=== PATIENT | male | born 1950 | race African-American/Black ===

== ENCOUNTER 2017-12-11 08:02 | Outpatient (CLI) | payer OTHER ==
--- NOTE | 2017-12-11 11:22 | CT ---
CT OF THE CHEST AND ABDOMEN WITH CONTRAST: Indication: History of esophageal cancer. Comparison: CT chest, abdomen and pelvis dated 02-12-17, CT chest dated 07-01-13, CT of the abdomen and pelvis dated 08-09-16. FINDINGS: CHEST: Since the comparison study there has been an interval esophagectomy and performance of a gastric pull through. There is some layered enteric contrast and gas seen within the esophagus. No suspicious pulm onary nodule is demonstrated. The lobulated pulmonary nodule within the left lower lobe measures 1.3 cm which is stable to the comparison exams. There is some mild subsegmental volume loss within the po sterior medial left lower lobe which is new. There are small calcified granuloma seen within the righ t middle lobe. There are scattered emphysema. No pathologically enlarged lymph nodes are seen within the mediastinum, hilar or axillary regions. ABDOMEN: The gallbladder is surgically absent. The intrahepatic and extrahepatic biliary ductal dilatation is stable. Mild dilatation of the main pancreatic duct at the level of the pancreatic head and proximal pancreatic body are stable. Adrenal glands are normal appearing. The right renal cysts are stable. Ot her renal hypodensities, difficult to characterize due to their size, are stable. No pathologically e nlarged lymph nodes are evident. The spleen is normal appearing. Mild ectasia of the infrarenal abdominal aorta measuring 2.4 cm is stable on Image 82 of Series 2. Se [place] vascular calcification of the abdominal and pelvic vasculature is similar. Scattered diverticula seen involving the colon without evidence of active diverticulosis. The visualized aspects of the sm all bowel appear within normal limits. Pars defect at L5 are stable. No suspicious osteolytic or oste oblastic lesion is evident. Small focus of sclerosis involving the inferior left third rib laterally has been stable since 2012. IMPRESSION: 1. Interval esophagectomy with gastric pullthrough. 2. No CT evidence to suggest regional or metastatic disease. 3. Stable left lower lobe pulmonary nodule. This has been stable over two years and is likely benign. 4. Stable renal cysts. 5. Cholecystectomy. 6. Diverticulosis. 7. Infrarenal abdominal aorta ectasia is stable. 8. Bilateral pars defects at L5. POS: [facility]
[2017-12-11] MEDS ORDERED: Iopamidol 370 76% 100 ML VIAL ONE ×2 (12:58)
== END 2017-12-11 08:03 | disposition home or self-care (01) ==
LOC: CT 08:02
PROVIDERS: ATTEND Internal Medicine Hematology & Oncology
DX: C15.5 Malignant neoplasm of lower third of esophagus (principal); R91.8 Other nonspecific abnormal finding of lung field; N28.1 Cyst of kidney, acquired; K57.30 Diverticulosis of large intestine without perforation or abscess without bleeding; I77.811 Abdominal aortic ectasia; Z90.49 Acquired absence of other specified parts of digestive tract
CPT/HCPCS: 71260; 74160

== ENCOUNTER 2018-03-11 11:27 | Outpatient (CLI) | payer OTHER, MEDICARE ==
--- NOTE | 2018-03-11 13:30 | RAD ---
TWO VIEW CHEST: INDICATIONS: Dyspnea. COMPARISON: Chest film from 06/08/[address] from 12/11/2017. FINDINGS: The lungs show hyperexpansion. No evidence of infiltrate or vascular congestion. Nodule overlying t he left lower lung has been previously described and remains stable. Heart size is normal. Mediasti num is unremarkable. IMPRESSION: 1. Hyperexpansion suggesting chronic obstructive pulmonary disease. 2. Left pulmonary nodule, stable. 3. No acute infiltrate or lung process. POS: [facility]
== END 2018-03-11 11:28 | disposition home or self-care (01) ==
LOC: RAD 11:27
PROVIDERS: ATTEND Internal Medicine Pulmonary Disease
DX: R06.00 Dyspnea, unspecified (principal); R91.1 Solitary pulmonary nodule; R91.8 Other nonspecific abnormal finding of lung field
CPT/HCPCS: 71046

== ENCOUNTER 2018-05-31 09:09 | Emergency (ER) | payer OTHER, MEDICARE | END 2018-05-31 10:25 | disposition home or self-care (01) | LOC: SCSER 09:09 | DX: J02.9 Acute pharyngitis, unspecified (principal); I25.10 Atherosclerotic heart disease of native coronary artery without angina pectoris; E11.9 Type 2 diabetes mellitus without complications; I10 Essential (primary) hypertension | CPT/HCPCS: 87081; 87430; 99283 ==

== ENCOUNTER 2018-07-02 08:05 | Outpatient (CLI) | payer OTHER, MEDICARE ==
--- NOTE | 2018-07-02 10:31 | CT ---
CT THORAX WITH IV CONTRAST CT ABDOMEN WITH IV CONTRAST: Date: 07-02-18 History: Esophageal cancer post chemotherapy and radiation. Follow up evaluation. Comparison: 12-11-17 FINDINGS: CT THORAX: Again noted is evidence of esophagectomy and gastric pull through. There is an approximately 4 mm pulmonary nodule seen within the right upper lobe (Image 17, Series 3) . This was present on the prior study as well as the study of 06-08-17. Again noted is the noncalcifie d left lower lobe pulmonary measuring approximately 1.4 cm. This has not significantly changed in siz e or appearance from prior exam. No new pulmonary nodule or mass is seen. Calcified granuloma is agai n present in the right middle lobe. There is no evidence of lymphadenopathy. Gynecomastia is seen bilaterally. No lytic or sclerotic osseous lesions are seen. CT ABDOMEN: Again noted are bilateral renal cysts with subcentimeter, too small to characterize, hypodense lesion s again present in the left kidney. Post cholecystectomy changes are noted. The liver, spleen, and bilateral adrenal glands demonstrate a normal CT appearance. Post cholecystectomy changes are noted. The pancreatic duct is prominent, but this is a stable findin g when compared to prior study as well as study on 08-09-16. The exact etiology for dilatation of the pancreatic duct is uncertain based on this exam. There is colonic diverticulosis. Opacified small bowel has a normal appearance and is normal in calib er. Atherosclerotic plaque is seen in the abdominal aorta and involving the iliac arteries. There is ecta ashley of the right common iliac artery with concentric area of atherosclerotic plaque present. There is no evidence of lymphadenopathy, free fluid, or fluid collection seen in the abdomen. Bilateral pars defects are seen at L5 with mild grade I anterolisthesis of L5 on S1. No lytic or scle rotic osseous lesions seen. There are degenerative changes in the lower lumbar spine. IMPRESSION: 1. Stable noncalcified pulmonary nodule left lower lobe measuring 14 mm as well as stable approximate ly 4 mm pulmonary nodule in the right upper lobe. No new pulmonary nodule or mass is seen. 2. Post-surgical changes related to esophagectomy and gastric pull through. 3. Stable dilatation of the pancreatic duct. 4. Bilateral renal cysts with subcentimeter too small to characterize left renal hypodensities. 5. Post cholecystectomy changes. 6. Gynecomastia. 7. Colonic diverticulosis. 8. Stable ectasia of the right common iliac artery with atherosclerotic plaque present. There is prom inent atherosclerotic plaque in the abdominal aorta and bilateral iliac arteries. 9. Spondylolisthesis lumbosacral junction. POS: [facility]
[2018-07-02] MEDS ORDERED: Iopamidol 370 76% 100 ML VIAL ONE (12:56)
== END 2018-07-02 08:06 | disposition home or self-care (01) ==
LOC: CT 08:05
PROVIDERS: ATTEND Internal Medicine Hematology & Oncology
DX: C15.5 Malignant neoplasm of lower third of esophagus (principal); K57.30 Diverticulosis of large intestine without perforation or abscess without bleeding; N28.1 Cyst of kidney, acquired; N62 Hypertrophy of breast; K86.89 Other specified diseases of pancreas; M43.16 Spondylolisthesis, lumbar region; I70.8 Atherosclerosis of other arteries; R91.1 Solitary pulmonary nodule; Z90.49 Acquired absence of other specified parts of digestive tract
CPT/HCPCS: 71260; 74160; 82565

== ENCOUNTER 2019-01-11 09:03 | Outpatient (CLI) | payer OTHER, MEDICARE ==
--- NOTE | 2019-01-11 10:40 | ULT ---
BILATERAL RENAL SONOGRAM: Date: 01/11/19 HISTORY: Chronic kidney disease. COMPARISON: CT abdomen on 07/02/18. FINDINGS: The right kidney measures 11.5 cm x 5.1 cm. The left kidney measures 9.6 cm x 5.2 cm. There are anechoic cystic lesions seen within the superior pole and lateral aspect of mid portion of right kidney. Largest cyst mid portion right kidney measures approximately 5.1 cm with anechoic lesio n in the superior pole of right kidney measuring approximately 2.3 cm. There is an anechoic cystic st ructure at the inferior pole of the left kidney measuring 1.6 cm. These anechoic cystic structures de monstrate sonographic findings compatible with renal cysts, which correspond to the findings on the r ecent CT scan exam. No solid renal mass is seen. There is no hydronephrosis, renal calculus, or perinephric fluid collect ion seen bilaterally. The urinary bladder is decompressed, but grossly normal in appearance for decompressed appearance of the urinary bladder. IMPRESSION: 1. Bilateral renal cysts. 2. No evidence of hydronephrosis. POS: [facility]
== END 2019-01-11 09:04 | disposition home or self-care (01) ==
LOC: BICULT 09:03
PROVIDERS: ATTEND Internal Medicine Nephrology
DX: N18.3 Chronic kidney disease, stage 3 (moderate) (principal); N28.1 Cyst of kidney, acquired
CPT/HCPCS: 76770

== ENCOUNTER 2019-03-10 11:32 | Outpatient (CLI) | payer OTHER, MEDICARE ==
--- NOTE | 2019-03-10 11:51 | RAD ---
2 views of chest: 03/10/2009 COMPARISON: 03/11/2018 HISTORY: Dyspnea FINDINGS: There is a 1.5 cm pulmonary nodule in the left lower lobe, unchanged when compared to the p rior examination. Increased linear interstitial density and pulmonary hyperinflation noted, suggesting COPD in the prop er clinical setting. No pneumothorax, pleural fluid, focal consolidation, or alveolar edema. IMPRESSION: Stable appearance of the chest as detailed above.
== END 2019-03-10 11:33 | disposition home or self-care (01) ==
LOC: RAD 11:32
PROVIDERS: ATTEND Internal Medicine Pulmonary Disease
DX: R06.00 Dyspnea, unspecified (principal); R91.8 Other nonspecific abnormal finding of lung field; J98.4 Other disorders of lung
CPT/HCPCS: 71046

== ENCOUNTER 2019-07-09 12:09 | Outpatient (CLI) | payer OTHER, MEDICARE ==
--- NOTE | 2019-07-09 13:26 | ULT ---
Exam: Bilateral renal ultrasound complete: HISTORY: Chronic kidney disease COMPARISON: 01/11/2019 FINDINGS: Right kidney: 9.3 x 6.7 x 5.6 cm Left kidney: 9.5 x 5.1 x 4.6 cm No renal hydronephrosis. No evidence for abnormal perinephric process. Multiple bilateral renal cysts up to 5.3 cm on the right side. Unremarkable appearing bladder. IMPRESSION: Multiple bilateral renal cysts. No renal hydronephrosis. Stable from prior study.
== END 2019-07-09 12:10 | disposition home or self-care (01) ==
LOC: BICULT 12:09
PROVIDERS: ATTEND Internal Medicine Nephrology
DX: N18.3 Chronic kidney disease, stage 3 (moderate) (principal); N28.1 Cyst of kidney, acquired
CPT/HCPCS: 76770

== ENCOUNTER 2020-03-13 09:49 | Outpatient (CLI) | payer OTHER, MEDICARE ==
--- NOTE | 2020-03-13 11:31 | RAD ---
LUMBAR SPINE RADIOGRAPHS 4 VIEWS: DATE: 03/13/2020. PROVIDED CLINICAL HISTORY: Back pain. FINDINGS: Five [id number] lumbar-type vertebral bodies are present. There is grade I anterolisthesis of L 5 on S1 likely on the basis of L5 pars defects. Lumbar alignment appears otherwise normal. There is no evidence for abnormal translational motion with flexion and extension. Vertebral body heights ap pear preserved. Pedicles appear intact. SI joints appear symmetric. Surgical clips are seen in the right upper quadrant. Vascular calcifications are noted. Intervertebral disk space heights appear preserved with the exception of L5-S1 where there is end plate degenerative change and vacuum disk ph enomenon. IMPRESSION: Grade I spondylolisthesis of L5 on S1. POS: [facility]
== END 2020-03-13 09:50 | disposition home or self-care (01) ==
LOC: BICRAD 09:49
PROVIDERS: ATTEND Nurse Practitioner Family
DX: M54.5 Low back pain (principal); M43.17 Spondylolisthesis, lumbosacral region
CPT/HCPCS: 72110

== ENCOUNTER 2020-03-14 09:44 | Outpatient (CLI) | payer OTHER, MEDICARE ==
--- NOTE | 2020-03-14 10:30 | RAD ---
PA AND LATERAL VIEWS CHEST: Date: 03/14/2020 HISTORY: Dyspnea. COMPARISON: 03/10/2019 and 03/11/2018. FINDINGS: The heart size is normal. The aorta is tortuous. 1.5 cm pulmonary nodule in the left lower lung is st able. No focal areas of consolidation, pneumothoraces, or pleural effusions are seen. No acute osseou s abnormalities are seen. IMPRESSION: Stable exam. No acute process. POS: [facility]
== END 2020-03-14 09:45 | disposition home or self-care (01) ==
LOC: RAD 09:44
PROVIDERS: ATTEND Internal Medicine Pulmonary Disease
DX: R06.00 Dyspnea, unspecified (principal)
CPT/HCPCS: 71046

== ENCOUNTER 2020-04-12 08:10 | Outpatient (CLI) | payer OTHER, MEDICARE ==
--- NOTE | 2020-04-12 10:09 | MRI ---
MRI LUMBAR SPINE WITHOUT CONTRAST: INDICATION: Lumbar stenosis with neurogenic claudication. Low back pain. COMPARISON: Comparison is made to an MRI lumbar spine dated July 2009. FINDINGS: There is a mild grade I anterolisthesis at L5-S1 with degenerative disk changes at this level. There is a posterior spondylolysis at this level. Similar findings were noted at this level in 2009. The anterolisthesis has progressed slightly since that time. An annular fissure with disk protrusion wa s present on the prior study. On today's exam, there continues to be evidence of an annular fissure and small focal protrusion at t his L5-S level. There is facet hypertrophy; however, no significant central canal stenosis. However , thee is bilateral foraminal stenosis at this level which has a similar appearance to 2009. L4-5: Minimal disk bulge. Facet arthrosis and hypertrophy. No significant central canal or foramin al stenosis. L3-4: No significant disk bulge. Minimal facet hypertrophy. No central canal or foraminal stenosis . L2-3: No significant disk bulge. Mild facet hypertrophy. No central canal or foraminal stenosis. L1-2: No evidence of disk bulge. No central canal or foraminal stenosis. The lumbar vertebrae maintain height. The disk spaces above L5 are preserved. IMPRESSION: 1. Grade I anterolisthesis at L5-S1 with degenerative disk changes. Posterior spondylolysis at this level. There is bilateral foraminal stenosis at this level with a focal disk protrusion. Similar f indings were present at this level in 2009. 2. Incidentally noted is a large cystic lesion involving the posterior right kidney measuring up to 5 cm. There is another 3 cm cystic lesion on the right and a 2-3 cm cystic lesion in the left kidney . Suggest renal ultrasound for further evaluation of the kidneys and documentation of these cystic l esions. POS: [facility]
== END 2020-04-12 08:11 | disposition home or self-care (01) ==
LOC: BICMRI 08:10
PROVIDERS: ATTEND Specialist
DX: M48.062 Spinal stenosis, lumbar region with neurogenic claudication (principal); M43.17 Spondylolisthesis, lumbosacral region; M51.37 Other intervertebral disc degeneration, lumbosacral region; M47.817 Spondylosis without myelopathy or radiculopathy, lumbosacral region; M48.07 Spinal stenosis, lumbosacral region; M51.27 Other intervertebral disc displacement, lumbosacral region; N28.1 Cyst of kidney, acquired
CPT/HCPCS: 72148

== ENCOUNTER 2020-06-30 07:30 | Outpatient (CLI) | payer MEDICARE ==
--- NOTE | 2020-06-30 09:27 | CT ---
CHEST AND ABDOMEN AND PELVIC CT SCAN WITH IV CONTRAST: HISTORY: Weight loss, pain, prior esophageal cancer with surgery, chemotherapy, and radiation. Prior appendec fortunato and cholecystectomy. COMPARISON: 06/16/2019. FINDINGS: Small 0.4 cm stable right upper lobe nodule. A 1.5 cm stable circumscribed nodule in the left lower lobe. There is a focus of approximately 2 cm in diameter of some linear parenchymal change in the ri ght upper lobe, new from prior study. This is nonspecific and could conceivably represent a tiny foc us of pneumonitis. Stable-appearing post gastric pull-up esophagus. No mediastinal mass or adenop athy. No pleural or pericardial effusion. Stable enlargement of the common bile duct up to approximately 1.2 cm without significant peripheral intrahepatic ductal dilatation. There is also dilatation of the main pancreatic duct. Bilateral imelda al cysts up to 5 cm. Stable anterolisthesis of L5 on S1. No evidence for large or small bowel obstr uction. No adenopathy. Urinary bladder appears unremarkable. No pelvic adenopathy. No evidence fo r bone metastasis. IMPRESSION: Interval development of a small, approximately 2 cm diameter area of very minimal linear parenchymal change in the right upper lobe since the prior exam. This could potentially represent a tiny focus o f pneumonia or pneumonitis. Depending upon concern, followup CT of chest in 3-6 months should be con sidered. Stable bilateral nodules and stable bilateral renal cysts and dilatation of the common bile duct and main pancreatic duct. No evidence for metastasis. POS: [facility]
[2020-06-30] MEDS ORDERED: Iopamidol-370 76% 500 ML 1 ML ONE (14:10)
== END 2020-06-30 07:31 | disposition home or self-care (01) ==
LOC: BICCT 07:30
PROVIDERS: ATTEND Family Medicine
DX: R63.4 Abnormal weight loss (principal); R10.9 Unspecified abdominal pain; R91.8 Other nonspecific abnormal finding of lung field; N28.1 Cyst of kidney, acquired; K83.8 Other specified diseases of biliary tract; K86.89 Other specified diseases of pancreas
CPT/HCPCS: 71260; 74177; Q9967

== ENCOUNTER 2020-09-28 09:35 | Outpatient (CLI) | payer MEDICARE ==
--- NOTE | 2020-09-28 14:04 | CT ---
CT OF THE CHEST, ABDOMEN AND PELVIS WITH IV CONTRAST: 09/28/20 INDICATION: History of pulmonary nodules and esophageal cancer. COMPARISON: Prior CT of the chest, abdomen and pelvis dated 06/30/20, 06/16/19, and 07/02/18. The previously seen reticulonodularity within the right upper lobe has intervally resolved likely ref lecting resolution of bronchiolitis. 5 mm right upper lobe pulmonary nodule and 1.5 cm left lower lob e pulmonary nodule is stable appearing. There is scattered emphysema. There are postsurgical changes of a prior gastric pull through and esophagectomy. No enlarged lymph nodes are evident. There is bila teral male gynecomastia. The gallbladder is surgically absent. The liver, pancreas, adrenal glands and spleen appear within no rmal limits. There are bilateral renal cysts. No hydronephrosis is evident. No free fluid or enlarged lymph nodes are evident. There are moderate calcifications involving the abdominopelvic vasculature. There is a mild amount of retained stool in the colon. Small bowel is normal appearing. There are small sclerotic lesions within L3 and T11 which are stable likely reflecting small bone isl ands. There are bilateral pars defects at L5 with grade I anterolisthesis of L5 on S1. IMPRESSION: 1. Stable bilateral pulmonary nodules. Resolution of the reticulonodular opacity of the right up per lobe likely reflecting resolution of bronchiolitis. 2. Stable emphysema. 3. Stable postsurgical change of esophagectomy with gastric pull through procedure. No evidence to suggest localized or distant metastatic disease. 4. Chronic findings. POS: [facility]
[2020-09-28] MEDS ORDERED: Iopamidol-370 76% 500 ML 1 ML ONE (14:33)
== END 2020-09-28 09:36 | disposition home or self-care (01) ==
LOC: BICCT 09:35
PROVIDERS: ATTEND Family Medicine
DX: C15.9 Malignant neoplasm of esophagus, unspecified (principal); R91.8 Other nonspecific abnormal finding of lung field; J43.9 Emphysema, unspecified; Z90.49 Acquired absence of other specified parts of digestive tract
CPT/HCPCS: 71260; 74177

== ENCOUNTER 2021-03-12 11:54 | Outpatient (CLI) | payer MEDICARE | END 2021-03-12 11:55 | disposition home or self-care (01) | LOC: BICRAD 11:54 | PROVIDERS: ATTEND Internal Medicine Pulmonary Disease | DX: R06.00 Dyspnea, unspecified (principal); R91.1 Solitary pulmonary nodule | CPT/HCPCS: 71046 ==

== ENCOUNTER 2021-07-24 09:49 | Outpatient (CLI) | payer MEDICARE | END 2021-07-24 09:50 | disposition home or self-care (01) | LOC: BICULT 09:49 | PROVIDERS: ATTEND Family Medicine | DX: N50.811 Right testicular pain (principal) | CPT/HCPCS: 76870; 93976 ==

== ENCOUNTER 2021-10-01 11:32 | Outpatient (CLI) | payer MEDICARE | END 2021-10-01 11:33 | disposition home or self-care (01) | LOC: BICRAD 11:32 | PROVIDERS: ATTEND Family Medicine | DX: M25.511 Pain in right shoulder (principal); M19.011 Primary osteoarthritis, right shoulder ==

== ENCOUNTER 2022-03-07 08:56 | Emergency (ER) | payer MEDICARE ==
[2022-03-07 10:03] LABS: Mean Corpuscular HGB CONC 31.8 g/dL (32.0-36.0); Mean Corpuscular Hemoglobin 28.1 pg (27.0-31.0); Mean Corpuscular Volume 88.3 fL (78.0-98.0); Mean Platelet Volume 7.9 fL (7.4-10.4); Platelet Count 230 thou/uL (130-400); RBC Distribution Width 14.7 % (11.5-14.5); Red Blood Cell (RBC) Count 4.99 mill/uL (4.70-6.10); White Blood Cell (WBC) Count 6.6 thou/uL (4.8-10.8)
[2022-03-07 10:24] LABS: Eosinophils 7 % (0-10); Lymphocytes 26 % (21-51); MDiff Complete? YES; Monocytes 9 % (0-10); Neutrophil 58 % (42-75)
[2022-03-07 10:38] LABS: ALT (SGPT) 20 U/L (8-55); AST (SGOT) 29 U/L (5-34); Albumin 4.3 g/dL (3.4-4.8); Alkaline Phosphatase 49 U/L (40-110); Anion Gap 18 mmol/L (10-20); BUN (Urea Nitrogen) 19 mg/dL (8.4-25.7); Bilirubin, Total 0.6 mg/dL (0.2-1.2); CK (CPK) 438 U/L (30-200); Calc. Creatinine Clearance 0 mL/min (70-130); Carbon Dioxide 19 mmol/L (23-31); Chloride 105 mmol/L (98-107); Glucose 141 mg/dL (80-115); Lipase 4 U/L (8-78); Potassium 4.5 mmol/L (3.5-5.1); Protein, Total 7.3 g/dL (5.8-8.1); Sodium 137 mmol/L (136-145)
[2022-03-07] MEDS ORDERED: Iopamidol-370 76% 500 ML 1 ML ONE (14:20)
== END 2022-03-07 12:25 | disposition home or self-care (01) ==
LOC: ERS 08:56
DX: J20.9 Acute bronchitis, unspecified (principal); R91.1 Solitary pulmonary nodule; I25.10 Atherosclerotic heart disease of native coronary artery without angina pectoris; E11.9 Type 2 diabetes mellitus without complications; I10 Essential (primary) hypertension; Z95.5 Presence of coronary angioplasty implant and graft; Z79.82 Long term (current) use of aspirin; Z79.899 Other long term (current) drug therapy
CPT/HCPCS: 36415; 71275; 80053; 82550; 83690; 83880; 84484; 85025; 85379; 93005; Q9967

== ENCOUNTER 2022-05-27 09:29 | Outpatient (CLI) | payer MEDICARE | END 2022-05-27 09:30 | disposition home or self-care (01) | LOC: BICCT 09:29 | PROVIDERS: ATTEND Internal Medicine Hematology & Oncology | DX: R91.1 Solitary pulmonary nodule (principal); J43.2 Centrilobular emphysema; N28.1 Cyst of kidney, acquired; Z90.49 Acquired absence of other specified parts of digestive tract | CPT/HCPCS: 71250 ==

== ENCOUNTER 2022-06-14 11:45 | Outpatient (CLI) | payer MEDICARE | END 2022-06-14 11:46 | LOC: PET 11:45 | PROVIDERS: ATTEND Internal Medicine Critical Care Medicine | DX: R91.1 Solitary pulmonary nodule (principal) | CPT/HCPCS: 78815; A9552 ==

== ENCOUNTER 2022-07-11 12:48 | Outpatient (CLI) | payer MEDICARE | END 2022-07-11 12:49 | disposition home or self-care (01) | LOC: RAD 12:48 | PROVIDERS: ATTEND Family Medicine | DX: J20.9 Acute bronchitis, unspecified (principal) | CPT/HCPCS: 71046 ==

== ENCOUNTER 2022-09-18 08:44 | Outpatient (CLI) | payer MEDICARE | END 2022-09-18 08:45 | disposition home or self-care (01) | LOC: CT 08:44 | PROVIDERS: ATTEND Internal Medicine Critical Care Medicine | DX: R91.8 Other nonspecific abnormal finding of lung field (principal); Z85.01 Personal history of malignant neoplasm of esophagus | CPT/HCPCS: 71260; 82565 ==

== ENCOUNTER 2023-01-08 07:31 | Outpatient (CLI) | payer OTHER | END 2023-01-08 07:32 | disposition home or self-care (01) | LOC: BICCT 07:31 | PROVIDERS: ATTEND Internal Medicine Critical Care Medicine | DX: R91.1 Solitary pulmonary nodule (principal) | CPT/HCPCS: 71250; 82565 ==

== ENCOUNTER 2023-05-21 08:55 | Outpatient (CLI) | payer MEDICARE ==
[2023-05-21] MEDS ORDERED: Iopamidol-370 76% 500 ML MDV (1 ML CHARGE) ONE (11:13)
== END 2023-05-21 08:56 | disposition home or self-care (01) ==
LOC: BICCT 08:55
PROVIDERS: ATTEND Internal Medicine Critical Care Medicine
DX: R91.1 Solitary pulmonary nodule (principal)
CPT/HCPCS: 71260; 82565; Q9967

== ENCOUNTER 2023-08-20 09:00 | Outpatient (CLI) | payer MEDICARE ==
[2023-08-20] MEDS ORDERED: Iopamidol-370 76% 500 ML MDV (1 ML CHARGE) ONE (11:12)
== END 2023-08-20 09:01 | disposition home or self-care (01) ==
LOC: BICCT 09:00
PROVIDERS: ATTEND Internal Medicine Critical Care Medicine
DX: R91.1 Solitary pulmonary nodule (principal); Q85.89 Other phakomatoses, not elsewhere classified; I70.0 Atherosclerosis of aorta; J84.10 Pulmonary fibrosis, unspecified; I25.10 Atherosclerotic heart disease of native coronary artery without angina pectoris; N62 Hypertrophy of breast; N28.1 Cyst of kidney, acquired; K83.8 Other specified diseases of biliary tract; K82.8 Other specified diseases of gallbladder; Z90.49 Acquired absence of other specified parts of digestive tract; Z98.890 Other specified postprocedural states
CPT/HCPCS: 71260; 82565; Q9967

== ENCOUNTER 2024-01-02 08:27 | Outpatient (CLI) | payer MEDICARE | END 2024-01-02 08:28 | disposition home or self-care (01) | LOC: BICCT 08:27 | PROVIDERS: ATTEND Internal Medicine Critical Care Medicine | DX: R91.1 Solitary pulmonary nodule (principal); D14.30 Benign neoplasm of unspecified bronchus and lung | CPT/HCPCS: 71260; 82565 ==

== ENCOUNTER 2024-06-07 10:28 | Outpatient (CLI) | payer MEDICARE | END 2024-06-07 10:29 | disposition home or self-care (01) | LOC: BICMRI 10:28 | PROVIDERS: ATTEND Nurse Practitioner Family | DX: M48.062 Spinal stenosis, lumbar region with neurogenic claudication (principal); M43.17 Spondylolisthesis, lumbosacral region; M47.816 Spondylosis without myelopathy or radiculopathy, lumbar region; M47.817 Spondylosis without myelopathy or radiculopathy, lumbosacral region; M48.07 Spinal stenosis, lumbosacral region | CPT/HCPCS: 72148 ==

== ENCOUNTER 2025-08-17 09:30 | Inpatient (IN) | payer OTHER ==
[2025-08-18] MEDS ORDERED: Bupivacaine 0.25% HCL 30 ML VIAL ONE (06:35)
[2025-08-18] MEDS ORDERED: CEFAZOLIN 2 GM VIAL ONE (06:41)
[2025-08-18] MEDS ORDERED: PROPOFOL 20 ML ONE (07:19)
[2025-08-18] MEDS ORDERED: Lidocaine 1% PF 5 ML VIAL ONE (07:19)
[2025-08-18] MEDS ORDERED: Rocuronium Bromide 10 MG/ML (10ML VIAL) ONE (07:19)
[2025-08-18] MEDS ORDERED: fentaNYL PF 100 MCG/2 ML SYRINGE ONE ×3 (07:26→10:39)
[2025-08-18] MEDS ORDERED: PHENYLEPHRINE-NS 100 MCG/ML 10 ML SYRINGE ONE (08:10)
[2025-08-18] MEDS ORDERED: Ondansetron PF 4 MG/2 ML Vial ONE (08:58)
[2025-08-18] MEDS ORDERED: SUGAMMADEX SODIUM 200 MG/2 ML VIAL ONE (09:14)
[2025-08-18] MEDS ORDERED: HYDROmorphone 0.5 MG/0.5 ML SYRINGE ONE ×2 (09:53→10:39)
[2025-08-18] MEDS ORDERED: Ondansetron PF 4 MG/2 ML Vial IVP PRN (10:15)
[2025-08-18] MEDS ORDERED: hydrALAZINE 20 MG/ML VIAL SLOW IVP PRN (10:15)
[2025-08-18] MEDS ORDERED: Cyclobenzaprine 10 MG TAB PO PRN (10:15)
[2025-08-18] MEDS ORDERED: Ketorolac Tromethamine 30 MG (1 mL) VIAL IVP SCH (12:00)
[2025-08-18] MEDS ORDERED: Acetaminophen 325 MG TAB ONE (16:04)
[2025-08-18] MEDS: Acetaminophen 325 MG TAB PO SCH (16:13)
[2025-08-18 17:51] LABS: #Basophils 0.06 10x3/uL (0.0-0.2); #Eosinophils 0.04 10x3/uL (0.0-0.7); #Monocytes 1.39 10x3/uL (0.11-0.59); #Neutrophils 5.77 10x3/uL (1.40-6.50); %Basophils 0.7 % (0.0-1.0); %Eosinophils 0.5 % (0.0-10.0); %Lymphocytes 16.0 % (21.0-51.0); %Monocytes 16.0 % (0.0-10.0); %Neutrophils 66.5 % (42.0-75.0); Hematocrit 39.4 % (42.0-52.0); Hemoglobin 12.8 g/dL (14.0-18.0); Mean Corpuscular Hemoglobin 26.9 pg (27.0-31.0); Mean Corpuscular Volume 82.8 fL (78.0-98.0); Platelet Count 154 10x3/uL (130-400); Red Blood Cell (RBC) Count 4.76 mill/uL (4.70-6.10); White Blood Cell (WBC) Count 8.68 10x3/uL (4.8-10.8)
[2025-08-18 18:05] LABS: Anion Gap 11 mmol/L (10-20); BUN (Urea Nitrogen) 30 mg/dL (8.4-25.7); Calc. Creatinine Clearance 28 mL/min (70-130); Calcium 8.9 mg/dL (7.8-10.44); Carbon Dioxide 26 mmol/L (23-31); Chloride 108 mmol/L (98-107); Glucose 136 mg/dL (83-110); Potassium 5.5 mmol/L (3.5-5.1); Sodium 139 mmol/L (136-145)
[2025-08-18] MEDS: Gabapentin 300 MG CAP PO SCH (21:50)
[2025-08-18] MEDS: Ezetimibe 10 MG TAB PO SCH (21:50)
[2025-08-18] MEDS: HYDROcodone/Acetaminophen 5/325 mg Tablet PO PRN (23:06)
[2025-08-19] MEDS: Pantoprazole 40 MG DR.TAB PO SCH (08:39)
[2025-08-19] MEDS: Aspirin 81 mg Enteric Coated Tablet PO SCH (08:39)
[2025-08-19] MEDS: Metoprolol Succinate XL 50 MG ER.TAB PO SCH (08:39)
[2025-08-19] MEDS: FLU (Fluad Triv) 25-26 (65UP)PF 45 MCG/0.5 ML Syringe IM ONE (08:41)
[2025-08-19] MEDS ORDERED: Non-Formulary Item 1 EACH (Fenofibrate [Lipofen] 150 MG Capsule) PO SCH (09:00)
[2025-08-19 09:17] VITALS: TEMP 98.1
[2025-08-19] MEDS: Ketorolac Tromethamine 30 MG (1 mL) VIAL IVP SCH (12:02)
[2025-08-19 12:40] VITALS: BP 124/68
[2025-08-19] MEDS: HYDROcodone/Acetaminophen 5/325 mg Tablet PO PRN (15:27)
[2025-08-19 15:31] VITALS: BMI 20.2
== END 2025-08-19 15:45 | disposition home or self-care (01) | DRG 182 ==
LOC: SURG A 08-18 05:56 → PCU 08-18 19:40
PROVIDERS: ADMIT Student in an Organized Health Care Education/Training Program; ATTEND Student in an Organized Health Care Education/Training Program
PROC: 0BBC8ZZ Excision of Right Upper Lung Lobe, Via Natural or Artificial Opening Endoscopic (ICD-10-PCS; principal; 2025-08-18)
PROC: 3E02340 Introduction of Influenza Vaccine into Muscle, Percutaneous Approach (ICD-10-PCS; 2025-08-18)
DX: C34.11 Malignant neoplasm of upper lobe, right bronchus or lung (principal); Z79.82 Long term (current) use of aspirin; Z79.899 Other long term (current) drug therapy; Z23 Encounter for immunization
CPT/HCPCS: 36415; 71045; 80048; 85025; 88307; 88341; 88342; 90653; A4314; C1776; J0169; J0665; J0690; J1171; J1642; J1885; J2704; J3010; S2900

== ENCOUNTER 2025-08-17 09:42 | Outpatient (CLI) | payer OTHER ==
[2025-08-17 10:45] LABS: #Basophils 0.07 10x3/uL (0.0-0.2); #Eosinophils 0.19 10x3/uL (0.0-0.7); #Monocytes 0.90 10x3/uL (0.11-0.59); #Neutrophils 2.63 10x3/uL (1.40-6.50); %Basophils 1.3 % (0.0-1.0); %Eosinophils 3.5 % (0.0-10.0); %Lymphocytes 29.1 % (21.0-51.0); %Monocytes 16.8 % (0.0-10.0); %Neutrophils 48.9 % (42.0-75.0); Hematocrit 43.7 % (42.0-52.0); Hemoglobin 13.5 g/dL (14.0-18.0); Mean Corpuscular Hemoglobin 26.1 pg (27.0-31.0); Mean Corpuscular Volume 84.5 fL (78.0-98.0); Platelet Count 183 10x3/uL (130-400); Red Blood Cell (RBC) Count 5.17 mill/uL (4.70-6.10); White Blood Cell (WBC) Count 5.37 10x3/uL (4.8-10.8)
[2025-08-17 11:13] LABS: Anion Gap 14 mmol/L (10-20); BUN (Urea Nitrogen) 40 mg/dL (8.4-25.7); Calc. Creatinine Clearance 0 mL/min (70-130); Calcium 9.9 mg/dL (7.8-10.44); Carbon Dioxide 21 mmol/L (23-31); Chloride 106 mmol/L (98-107); Glucose 210 mg/dL (83-110); Potassium 4.4 mmol/L (3.5-5.1); Sodium 137 mmol/L (136-145)
== END 2025-08-17 09:43 | disposition home or self-care (01) ==
LOC: LABBT 09:42
PROVIDERS: ATTEND Student in an Organized Health Care Education/Training Program
DX: Z01.818 Encounter for other preprocedural examination (principal); C34.11 Malignant neoplasm of upper lobe, right bronchus or lung
CPT/HCPCS: 71046; 80048; 85025; 86850; 86900; 86901; 93005; 93010

== ENCOUNTER 2025-09-01 09:37 | Outpatient (CLI) | payer OTHER | END 2025-09-01 09:38 | disposition home or self-care (01) | LOC: RAD 09:37 | PROVIDERS: ATTEND Student in an Organized Health Care Education/Training Program | DX: C34.11 Malignant neoplasm of upper lobe, right bronchus or lung (principal) | CPT/HCPCS: 71046 ==